=== PATIENT | male | born 1935 | race Caucasian/White ===

== ENCOUNTER 2016-12-08 14:29 | Inpatient (IN) ==
--- NOTE | 2016-12-07 22:19 | Discharge Summary ---
<Shanell Koch - Last Filed: 12/07/16 22:14> Date of Encounter: 12/07/16 - Discharge Diagnosis (1) Arthritis of right hip Priority: Primary Status: Acute (2) Status post total hip replacement, right Priority: Primary Status: Acute (3) Obesity Priority: Secondary Status: Chronic Qualifiers: Obesity type: due to excess calories Obesity classification: unspecified obesity classification Serious obesity comorbidity presence: without serious comorbidity Qualified Code(s): E66.09 - Other obesity due to excess calories (4) HTN (hypertension) Priority: Secondary Status: Chronic Qualifiers: Hypertension type: essential hypertension Qualified Code(s): I10 - Essential (primary) hypertension - Discharge Medications Home Medications: OxyCODONE Immed Rel [Roxicodone 5 MG] 5 - 10 mg PO Q6HR PRN #40 tablet 12/07/16 [Rx] Amlodipine/Atorvastatin [Caduet 5 mg-20 mg Tablet] 1 each PO DAILY 12/08/16 [ History] Cholecalciferol (Vitamin D3) [Vitamin D] 2,000 unit PO DAILY #0 12/08/16 [ History] hydroCHLOROthiazide [Hydrochlorothiazide] 25 mg PO DAILY #0 12/08/16 [History] Allergies/Adverse Reactions: 3 Allergy/AdvReac Type Severity Reaction Status Date / Time No Known Allergies Allergy Verified 11/27/16 08:07 Primary care physician: Talha Armijo Jr, MD - Patient Status Disposition: Home Health Service Condition: Good - Discharge Instructions Follow Up With: Talha Armijo Jr, MD [Primary Care Provider] - - Hospital Course Hospital course: Mr. Rey is a 81 year old male - Time Spent with Patient Total time spent providing and/or coordinating discharge services: <Ganesh Alexis - Last Filed: 12/09/16 06:48> Date of Encounter: 12/09/16 Time of Encounter: 06:47 Primary care physician: Talha Armijo Jr, MD - Patient Status Functional capacity at discharge: uses cane/walker Overall status at discharge: patient is progressing back to baseline - Hospital Course Hospital course: Mr. Rey is a 81 year old male Status post right total hip replacement The patient had an uneventful postoperative course. They received antibiotics and physical therapy and were discharged in stable condition. There will follow -up in the office in 2 weeks. - Time Spent with Patient Total time spent providing and/or coordinating discharge services:
--- NOTE | 2016-12-08 09:33 | Physician Discharge Referral ---
Home Health/Hosp Referral Info Transfer to: Home Health Attending Provider: Provider in Charge Post Discharge: PCP - Diagnosis (1) Arthritis of right hip Priority: Primary Status: Acute (2) Status post total hip replacement, right Priority: Primary Status: Acute (3) Obesity Priority: Secondary Status: Chronic (4) HTN (hypertension) Priority: Secondary Status: Chronic - Respiratory Orders None Smoking Cessation: Smoking cessation has been advised. For more information, call the [employer] Tobacco Quit Line at 8-962-EZFE-NOW. - Dressing/Wound Care Type of Dressing/Treatments w/Frequency: Right Hip: THR Opsite dressing, leave intact until first post-operative visit. If dressing becomes >50% saturated, contact office, remove dressing and place appropriate dressing in its place. Do not allow for dressing to get wet. [place] in place. To be removed at POW#2 once incision has healed. PT: HIP Precautions x 6 weeks Apply cold therapy wrap 3-6x/day for 20 minutes at a time. Encourage ambulation throughout the day and incentive spirometer 10x/hour. Elevate affected extremity above heart as tolerated. Brace: Hip Abduction pillow - keep in place at night until post-operative week # 6. - Diet/Nutrition Diet/Nutrition Orders: Regular - Activity Activity Orders: Up ad sahlyn, Ambulate - Services Needed Following services are medically necessary services: Nursing, Home Health Aide, Physical Therapy, Occupational Therapy - Transfer Medications Prescriptions: OxyCODONE Immed Rel [Roxicodone 5 MG] 5 - 10 mg PO Q6HR PRN #40 tablet PRN Reason: Pain Aspirin Enteric Coated [Aspirin EC] 325 mg PO DAILY #21 tablet. Home Medications: Aspirin Enteric Coated [Aspirin EC] 325 mg PO DAILY #21 tablet. 12/07/16 [Rx] OxyCODONE Immed Rel [Roxicodone 5 MG] 5 - 10 mg PO Q6HR PRN #40 tablet 12/07/16 [Rx] Allergies/Adverse Reactions: 3 Allergy/AdvReac Type Severity Reaction Status Date / Time No Known Allergies Allergy Verified 11/27/16 08:07 Certification: Further, I certify that my clinical findings support that this patient is homebound (i.e. absences from home require considerable and taxing effort and are for medical reasons or oriental orthodox services or infrequently or short duration when for other reasons) because: Homebound Reason: Post-surgery restriction and or conditions limit ability to leave home Attestation: My signature below is to certify that this patient is under my care and that I, or nurse practitioner, or a physician's assistant fitness manager working with me, has a face-to -face encounter with this patient.
[2016-12-08] MEDS ORDERED: Lidocaine -MPF 2% 2 ML VIAL ONE (14:30)
[2016-12-08] MEDS ORDERED: Lidocaine -MPF 4% 5 ML AMPUL ONE (14:30)
[2016-12-08] MEDS ORDERED: Dexamethasone 4 MG/ML VIAL ONE (14:30)
[2016-12-08] MEDS ORDERED: *HR* Succinylcholine 200 MG/10 ML VIAL IVP ONE (14:30)
[2016-12-08] MEDS ORDERED: Ondansetron 4 MG/2 ML VIAL ONE (14:30)
[2016-12-08] MEDS ORDERED: *HR* FentaNYL (PF) 100 MCG/2 ML VIAL ONE ×2 (14:31→16:20)
[2016-12-08] MEDS ORDERED: *HR* Propofol 200 MG/20 ML VIAL IVP ONE (14:31)
[2016-12-08] MEDS ORDERED: *HR* HYDROmorphone (PF) 1 MG/ML SYRINGE IVP PRN ×2 (14:37→18:14)
[2016-12-08] MEDS ORDERED: *HR* Promethazine 25 MG/ML VIAL IVP PRN (14:37)
[2016-12-08] MEDS ORDERED: Famotidine 20 MG/2 ML VIAL IVP ONE (14:39)
[2016-12-08] MEDS ORDERED: Acetaminophen IV 1,000 MG/100 ML INFUS..BTL IVPB ONE (14:40)
[2016-12-08] MEDS ORDERED: Gabapentin 300 MG CAPSULE PO ONE (14:40)
[2016-12-08] MEDS ORDERED: Plasma-Lyte A (PH 7.4) 1,000 ML IVC SCH (14:45)
--- NOTE | 2016-12-08 14:46 | History & Physical Report ---
Date of Encounter: 12/08/16 Time of Encounter: 14:46 24 Hour HP Update - Instructions Instructions: If the History and Physical is less than 30 days old and was completed prior to A.M. admission and or procedure and has NOT been updated on calendar day of procedure please complete this update prior to performing procedure. - Update Patient reports changes in Medical Condition: No Changes in examination, assessment, or condition: No Changes in Medication: No Preop tests/diagnostics Reviewed: Yes Surgery Remains Indicated: Yes Consent for Planned Operative Procedure(s) Verified: Yes - Pre-Operative Checklist Preoperative Checklist Indicated: No Prophylactic Antibiotic Ordered: Yes Is VTE Prophylaxis Indicated?: Yes
[2016-12-08] MEDS ORDERED: CeFAZolin Pre 2,000 MG/100 ML 2,000 MG/100 ML BAG IVPB ONE (14:53)
--- NOTE | 2016-12-08 14:59 | Anesthesia Evaluation PreOp ---
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 12/07/16 [Rx] OxyCODONE Immed Rel [Roxicodone 5 MG] 5 - 10 mg PO Q6HR PRN #40 tablet 12/07/16 [Rx] 3 Allergy/AdvReac Type Severity Reaction Status Date / Time No Known Allergies Allergy Verified 11/27/16 08:07 - Meds/Allergy Pre-op Review Medications Reviewed: Yes Allergies Reviewed: Yes Beta Blockers on Current Med List: No Anesthesia Results - Labs Laboratory Tests 11/27/16 11/27/16 11/27/16 08:20 08:20 08:20 Hgb 17.5 H Hct 49.5 Plt Count 170 PT 10.8 INR 1.0 APTT 28.4 Sodium 138 Potassium 3.6 BUN 13 Creatinine 0.85 - Imaging EKG: report reviewed (SR) Anesthesia Exam O2 Sat Height 1.78 m Weight 109.769 kg Height: 5'10 Weight: 242 lbs NPO (# of Hours): MN Pain Scale: 0 - HEENT Pupil (Motor): Pupils equal, EOMI Mallampati: II Teeth: Normal Denture Type: Upper: Complete Oral Opening: Greater than 3 - LOCKSTITCH ZIPPER SETTER LOC: Oriented LOCKSTITCH ZIPPER SETTER Motor: Normal RUE, Normal LUE, Normal RLE, Normal LLE, Normal Face LOCKSTITCH ZIPPER SETTER Sensory: Normal: RUE, LUE, RLE, LLE, Face - Cardiac Rhythm: Regular Murmur: None JVD: No Carotid Bruit: No - Pulmonary Breath Sounds: bilateral Clear Respiratory Effort: Symmetrical Anesthesia Assess/Plan ASA Score: 2 Modified [place] Scale for Level of Consciousness: Cooperative, oriented, and tranquil Anesthetic Plan: General, Regional Monitoring Plan: Standard Monitors Recovery Plan: PACU (Discussed GA and RA, agrees to proceed)
[2016-12-08] MEDS ORDERED: Ringers Solution, Lactated 1,000 ML IVC SCH ×2 (15:00→18:14)
[2016-12-08] MEDS ORDERED: *HR* Midazolam HCl 2 MG/2 ML VIAL ONE (15:09)
[2016-12-08] MEDS ORDERED: Bupivacaine/Clonidine Syringe 1 EACH SYRINGE ONE (15:10)
--- NOTE | 2016-12-08 15:57 | Anesthesia Procedures ---
Date of Encounter: 12/08/16 Time of Encounter: 14:55 Procedures: Anesthesia - Nerve Block Procedure Date: 12/08/16 Time: 15:40 Pre-op Diagnosis: Rt Hip Arthropathy Surgical Procedure: Rt THR Checklist: Correct Patient Identifier Correct side: Right Blood Thinner: No Monitor Applied: EKG, BP, Pulse Oximetry Supplemental Oxygen via Nasal Cannula (L/min): 2 Sedation: Versed (mg): 2 Sedation: Fentanyl (mcg): 100 Indication: Post Op Analgesia Pre-op Neuro Deficits: No Block Type: Other (Fascia Iliaca) Catheter placed: No Depth at skin (cm): 2 Sterile Technique: Yes Ultrasound used: Yes Anatomy identified: Yes Visual spread of Local: Yes Neuro Stimulation: No Blood on Needle Aspiration: No Smooth Injection of Local: Yes Pain with Injection of Local: No Prep: Chlorhexadine Needle: 22 x 50 mm Stimuplex Local: 0.25% Bupivicaine w/Clonidine 20 mcg/cc Volume (cc): 60 Number of Attempts: 1 Complications: None/effective block Vitals: Vital Signs/O2 Sat/Glucose, Most Current Temp Pulse Resp BP Pulse Ox 12/08/16 15:24 84 16 151/91 96 12/08/16 15:00 98.4 F 88 20 153/74 94
[2016-12-08] MEDS ORDERED: Ketorolac 30 MG/ML VIAL ONE (16:40)
--- NOTE | 2016-12-08 16:43 | Orthopedic Operative Note ---
Date of procedure: 12/08/16 Pre-op diagnosis: Right hip arthritis Post-op diagnosis: same Procedure: Procedure: Right Total Hip Replacment Estimated blood loss: 200 cc Hardware: Metal and polyethylene replacement. Biomet DM Cup: 60 G7 fin cup Femoral size 12 echo full profile lateralized stem Head: head with [place] +6 Procedural Notes: Grade 4 arthritic changes femoral head acetabular socket Operative procedure: The patient was brought to the operating room and placed on the operating room table. After general anesthesia was administered the patient was placed in the lateral decubitus position with the operative leg up. All pressure points were padded appropriately and the head was stabilized in the neutral position. The operative extremity was prepped and draped in the sterile surgical fashion patient received IV antibiotic prior to skin incision. A standard posterior approach is made to the operative hip, the incision was made through the skin and subcutaneous tissue hemostasis was obtained with Bovie cautery. Using careful sharp dissection the fascia was identified and incised exposing the external rotators. The external rotators were released off the greater trochanter and tagged with #2 FiberWire suture. The capsule was T'd open and the hip was brought into internal rotation. Patient noted to have grade 4 arthritic changes femoral head. The femoral neck cut was made at the appropriate level. An anterior capsulotomy was performed for the anterior retractor. Soft tissues removed from the acetabulum. Patient noted to have grade 4 arthritic changes acetabulum. Acetabulum was first reamed medially, and then reamed in 15 degrees of anteversion and 45 degrees off the horizontal. It was reamed up to the appropriate size 60 The appropriate-sized 60 acetabular cup was impacted in place in 15 degrees of anteversion and 45 degrees off the horizontal. This had good fit and fixation. The hip was brought back in to internal rotation and prepared with the box printing machine operator followed by the canal finder followed by broaching process in 20 degrees anteversion. It was broached up to the appropriate size 12 The femoral implant was impacted in place in 20 degrees of anteversion. Trial reduction found the hip to be stable with 6 head and Paris. The trials were removed and the real implants were impacted in place. The hip was reduced, patient had apparent equal leg lengths. The hip had excellent stability with forward flexion to 90 degrees adduction of 30 degrees and internal rotation of 60 degrees. The hip had no shuck. The hips after 2 minutes with a Betadine saline solution. It was irrigated out with 2 L of pulse irrigation. The hip was closed by the PA. Fascia was closed with a running #2 PDS suture. The deep tissue was irrigated and closed deep with #1 PDS suture superficially with 0 PDS suture and skin was closed with Dermabond and skin sylwia. The patient was placed in a sterile dressing and abduction pillow. The patient was extubated and transferred to the recovery room in stable condition. Anesthesia: GETA Surgeon: Ganesh Alexis Condition: stable Disposition: PACU
--- NOTE | 2016-12-08 17:29 | Anesthesia Evaluation Post Op ---
Date of Encounter: 12/08/16 Time of Encounter: 17:30 - Vital Signs Vital Signs: Vital Signs/O2 Sat/Glucose, Most Current Temp Pulse Resp BP Pulse Ox 12/08/16 15:24 84 16 151/91 96 12/08/16 15:00 98.4 F 88 20 153/74 94 - Lungs Lungs: Clear Ascult./Percussion - Airway Airway: Non-obstructed - Cardiovascular Regular Rate - Mental Status Mental Status: Alert & Oriented, Answers Appropriately - Pain Pain Scale: 1 - Nausea Vomiting Nausea Vomiting: Not Present - Hydration Hydration: Ice chips - Discharge PostOp Status: Transfer Patient to floor
[2016-12-08 17:49] LABS: Hematocrit 46.7 % (37.5-50.1); Hemoglobin 15.8 g/dL (12.9-16.9)
[2016-12-08] MEDS ORDERED: *HR* Enoxaparin 30 MG/0.3 ML SYRINGE SQ SCH (18:00)
[2016-12-08] MEDS ORDERED: Ondansetron 4 MG/2 ML VIAL IVP PRN (18:14)
[2016-12-08] MEDS ORDERED: ceFAZolin 2,000 MG in D5% in Water 100 ML IVPB SCH (18:14)
[2016-12-08] MEDS ORDERED: Naloxone 0.4 MG/ML INJ IVP PRN (18:14)
[2016-12-08] MEDS ORDERED: MOM Conc 10 ML UD.LIQ PO PRN (18:14)
[2016-12-08] MEDS ORDERED: Sennosides 8.6 MG TABLET PO PRN (18:14)
[2016-12-08] MEDS ORDERED: *HR* OxyCODONE Immed Rel 5 MG TABLET PO PRN (18:14)
[2016-12-08] MEDS ORDERED: Temazepam 15 MG CAPSULE PO PRN (18:14)
[2016-12-08] MEDS: Ascorbic Acid 500 MG TABLET PO SCH (18:27)
[2016-12-08] MEDS: *HR* OxyCODONE Immed Rel 5 MG TABLET PO PRN (18:32)
[2016-12-08] MEDS: ceFAZolin 2,000 MG in D5% in Water 100 ML IVPB SCH (23:40)
[2016-12-09 05:28] LABS: Hematocrit 42.4 % (37.5-50.1); Hemoglobin 14.7 g/dL (12.9-16.9)
[2016-12-09 05:42] LABS: BUN/Creatinine Ratio 19 (6-26); Blood Urea Nitrogen 18 mg/dL (8-26); Calcium 8.7 mg/dL (8.6-10.8); Carbon Dioxide 24 mEq/L (19-29); Chloride 104 mEq/L (98-109); Glucose 130 mg/dL (70-99); Osmolality,Calculated 284 (280-300); Potassium 4.7 mEq/L (3.5-4.5); Sodium 135 mEq/L (136-145); eGFR For African Americans > 60 (> 60); eGFR For Non-African Americans > 60 (> 60)
[2016-12-09] MEDS ORDERED: *HR* Enoxaparin 30 MG/0.3 ML SYRINGE SQ SCH (06:00)
[2016-12-09] MEDS: *HR* OxyCODONE Immed Rel 5 MG TABLET PO PRN ×2 (06:47→11:24)
--- NOTE | 2016-12-09 06:49 | Orthopedics Progress Note ---
Date of Encounter: 12/09/16 Time of Encounter: 06:48 Subjective Interval history: Patient was seen this morning doing well without complaints. Afebrile vital signs stable. Operative extremity: Neurovascularly intact Dressing clean dry and intact Calves nontender Assessment and plan: Continue with postoperative care Hematocrit 42 discharged today Objective Vital signs: Vital Signs Temp Pulse Resp BP Pulse Ox 12/09/16 06:33 97.8 F 79 18 157/79 95 12/09/16 04:53 97.6 F 80 18 146/79 99 12/08/16 23:48 98.1 F 79 18 135/68 96 12/08/16 18:50 98.4 F 84 16 148/91 96 12/08/16 18:20 97.7 F 85 17 137/89 98 12/08/16 18:00 97.9 F 79 16 155/97 97 12/08/16 17:50 97.9 F 77 16 148/96 97 12/08/16 17:40 97.9 F 80 15 145/87 97 12/08/16 17:30 69 12 131/86 97 12/08/16 17:20 74 14 128/76 98 12/08/16 17:10 97.3 F L 76 16 132/85 95 12/08/16 15:24 84 16 151/91 96 12/08/16 15:00 98.4 F 88 20 153/74 94 Intake and Output 12/08/16 12/08/16 12/09/16 15:59 23:59 07:59 Intake Total 0 / 0 500 / 500 Output Total 200 / 200 650 / 650 Balance -200 / -200 -150 / -150 Intake: Oral 0 / 0 500 / 500 Output: Urine 650 / 650 Estimated Blood Loss 200 / 200 Other: Weight 109.769 kg - Labs CBC & BMP: 12/09/16 05:08 12/09/16 05:08 Labs: Abnormal lab results Sodium 135 mEq/L (136-145) L 12/09/16 05:08 Potassium 4.7 mEq/L (3.5-4.5) H 12/09/16 05:08 Glucose 130 mg/dL (70-99) H 12/09/16 05:08 - VTE Documentation of Mechanical Device: Venous foot pump, device Consult Discharge Plan - Plan Referrals: Talha Armijo Jr, MD [Primary Care Provider] -
[2016-12-09] MEDS: ceFAZolin 2,000 MG in D5% in Water 100 ML IVPB SCH (08:28)
[2016-12-09] MEDS: Ascorbic Acid 500 MG TABLET PO SCH (08:30)
[2016-12-09] MEDS ORDERED: amLODIPine 5 MG TABLET PO SCH (09:00)
[2016-12-09] MEDS ORDERED: Cholecalciferol (D-3) 1,000 UNIT TABLET PO SCH (09:00)
[2016-12-09] MEDS ORDERED: hydroCHLOROthiazide 25 MG TABLET PO SCH (09:00)
[2016-12-09] MEDS ORDERED: Multivit/Ca/Min/Fe/FA 1 TAB TABLET PO SCH (09:00)
--- NOTE | 2016-12-09 12:21 | Event Note ---
Date of Encounter: 12/09/16 Time of Encounter: 12:21 PCR - Right THR POD#1 Patient seen at bedside. Labs stable Pain control: Adequate Participating in PT. All questions and concerns addressed. Educated on use of incentive spirometer, ambulation, and hydration. Patient educated on post-operative restrictions and care. Addressed: See above D/C plan:. today
[2016-12-16] VITALS: BP 118/62
== END 2016-12-09 14:41 | disposition home health service (06) | DRG 470 ==
LOC: SAMDAY 14:29 → 3NENU 18:11
PROVIDERS: ADMIT Orthopaedic Surgery; ATTEND Orthopaedic Surgery

== ENCOUNTER 2020-12-02 08:53 | Observation (INO) ==
[2020-12-02] MEDS ORDERED: Ondansetron 4 MG/2 ML VIAL IVP ONE (09:29)
[2020-12-02] MEDS ORDERED: 0.9 % Sodium Chloride 1,000 ML IVC ONE (09:29)
[2020-12-02] MEDS ORDERED: Isovue-370 500 ML BOTTLE IVP ONE (09:36)
[2020-12-02 09:58] LABS: Bacteria,Urine Moderate per hpf (None-Few); Bilirubin,Urine Negative (Negative); Blood,Urine Negative (Negative); Clarity,Urine Turbid (Clear); Color,Urine Yellow (Yellow); Glucose,Urine (UA) Normal (Normal); Hyaline Casts,Urine Moderate per lpf (None Seen); Ketones,Urine Negative (Negative); Leukocyte Esterase,Urine Moderate (Negative); Mucus,Urine Many per lpf (None-Few); Nitrite,Urine Negative (Negative); Protein,Urine Trace mg/dL (Neg-Trace); RBC,Urine 0-3 per hpf (0-3); Specific Gravity,Urine 1.019 (1.010-1.025); Squamous Epithelial Cell,Urine Few per hpf (None-Few); WBC,Urine 50-100 per hpf (0-3)
[2020-12-02 10:02] LABS: Basophils % 0.1 %; Hematocrit 24.5 % (37.5-50.1); Hemoglobin 8.4 g/dL (12.9-16.9); Immature Granulocytes % 0.5 % (0-4); Lymphocytes # 0.6 K/mcL (0.6-4.6); Lymphocytes % 3.8 %; Mean Corpuscular HGB Conc 34.3 g/dL (31.6-35.5); Mean Corpuscular Hemoglobin 31.3 pg (28.0-33.3); Mean Corpuscular Volume 91.4 fL (83.0-100.0); Mean Platelet Volume 9.3 fL (9.4-12.4); Monocytes # 0.8 K/mcL (0.0-1.3); Monocytes % 5.1 %; Neutrophils # 13.3 K/mcL (1.6-8.9); Platelet Count 266 K/mcL (140-400); Red Blood Count 2.68 M/mcL (4.19-5.50); Red Cell Distribution Width 13.4 % (11.5-14.5); Segmented Neutrophils % 90.5 %; White Blood Count 14.7 K/mcL (4.3-11.1)
[2020-12-02 10:14] LABS: INR 1.3; Prothrombin Time 14.9 Seconds (9.4-12.1)
[2020-12-02 10:22] LABS: Alanine Aminotransferase 8 Units/L (7-52); Albumin 3.1 g/dL (3.5-5.7); Albumin/Globulin Ratio 1.3 (1.1-2.2); Alkaline Phosphatase 55 Units/L (34-104); Aspartate Amino Transferase 11 Units/L (13-39); BUN/Creatinine Ratio 22 (6-26); Bilirubin,Total 1.5 mg/dL (0.3-1.0); Blood Urea Nitrogen 19 mg/dL (8-23); Calcium 8.2 mg/dL (8.6-10.3); Carbon Dioxide 28 mEq/L (23-29); Chloride 95 mEq/L (98-107); Globulin 2.4 g/dL (2.4-3.5); Glucose 144 mg/dL (70-105); Osmolality,Calculated 279 (280-300); Potassium 3.1 mEq/L (3.5-5.1); Sodium 132 mEq/L (136-145); Total Protein 5.5 g/dL (6.4-8.9); eGFR For African Americans > 60 (> 60); eGFR For Non-African Americans > 60 (> 60)
[2020-12-02 10:31] LABS: Troponin I < 0.03 ng/mL (< 0.04)
[2020-12-02] MEDS ORDERED: Pantoprazole 40 MG VIAL IVP ONE (10:34)
[2020-12-02] MEDS: Pantoprazole 40 MG in 0.9 % Sodium Chloride Mini Bag 100 ML IVC SCH ×3 (11:31→22:40)
[2020-12-02 12:29] LABS: INR 1.3
[2020-12-02 12:32] LABS: Activated Partial Thrombo Time 26.1 Seconds (26.0-36.0)
[2020-12-02] MEDS ORDERED: Naloxone 0.4 MG/ML INJ IVP PRN (13:42)
[2020-12-02] MEDS ORDERED: Ondansetron 4 MG/2 ML VIAL IVP PRN (13:42)
[2020-12-02] MEDS ORDERED: Potassium Chloride 40 MEQ, Lidocaine 1% 2 ML in 0.9 % Sodium Chloride 250 ML IVPB ONE (14:01)
[2020-12-02] MEDS ORDERED: D5% in Water 1,000 ML IVC PRN (14:02)
[2020-12-02] MEDS ORDERED: *HR* Dextrose 50 % in Water (Vial) 50 ML VIAL IVP PRN (14:02)
[2020-12-02] MEDS ORDERED: Dextrose Gel 15 GM/37.5 ML TUBE PO PRN ×2 (14:02)
[2020-12-02] MEDS: cefTRIAXone 1,000 MG in Water for inj. (sterile) 10 ML IVP SCH (14:47)
[2020-12-02 15:26] LABS: Estimated Average Glucose 97 mg/dl
[2020-12-02 15:51] LABS: % Iron Saturation 5 % (20-55); Iron 13 mcg/dL (65-175); Magnesium 1.7 mg/dL (1.6-2.6); Transferrin 176 mg/dL (203-362)
[2020-12-02 15:55] LABS: Folate 6.7 ng/mL (3.0-16.0)
[2020-12-02] MEDS ORDERED: Pantoprazole 40 MG VIAL IVP SCH (18:00)
[2020-12-02] MEDS: Insulin LISPRO 300 UNITS/3 ML VIAL SUBQ SCH (18:00)
[2020-12-03] MEDS: Insulin LISPRO 300 UNITS/3 ML VIAL SUBQ SCH ×5 (00:06→23:27)
[2020-12-03] MEDS: Pantoprazole 40 MG in 0.9 % Sodium Chloride Mini Bag 100 ML IVC SCH ×3 (03:31→12:52)
[2020-12-03 06:28] LABS: Basophils % 0.1 %; Eosinophils # 0.1 K/mcL (0.0-0.6); Eosinophils % 0.9 %; Hematocrit 21.9 % (37.5-50.1); Hemoglobin 7.5 g/dL (12.9-16.9); Immature Granulocytes % 0.5 % (0-4); Lymphocytes # 0.8 K/mcL (0.6-4.6); Lymphocytes % 8.8 %; Mean Corpuscular HGB Conc 34.2 g/dL (31.6-35.5); Mean Corpuscular Hemoglobin 31.3 pg (28.0-33.3); Mean Corpuscular Volume 91.3 fL (83.0-100.0); Mean Platelet Volume 9.5 fL (9.4-12.4); Monocytes # 0.7 K/mcL (0.0-1.3); Monocytes % 8.4 %; Neutrophils # 7.2 K/mcL (1.6-8.9); Platelet Count 239 K/mcL (140-400); Red Cell Distribution Width 13.5 % (11.5-14.5); Segmented Neutrophils % 81.3 %; White Blood Count 8.9 K/mcL (4.3-11.1)
[2020-12-03 07:09] LABS: Alanine Aminotransferase 7 Units/L (7-52); Albumin 2.9 g/dL (3.5-5.7); Albumin/Globulin Ratio 1.5 (1.1-2.2); Alkaline Phosphatase 49 Units/L (34-104); Aspartate Amino Transferase 12 Units/L (13-39); BUN/Creatinine Ratio 19 (6-26); Blood Urea Nitrogen 15 mg/dL (8-23); Carbon Dioxide 26 mEq/L (23-29); Chloride 99 mEq/L (98-107); Globulin 1.9 g/dL (2.4-3.5); Glucose 109 mg/dL (70-105); Osmolality,Calculated 275 (280-300); Potassium 3.3 mEq/L (3.5-5.1); Sodium 132 mEq/L (136-145); Total Protein 4.8 g/dL (6.4-8.9); eGFR For African Americans > 60 (> 60); eGFR For Non-African Americans > 60 (> 60)
[2020-12-03] MEDS ORDERED: Iron Sucrose Complex 400 MG in 0.9 % Sodium Chloride 250 ML IVPB ONE (07:34)
[2020-12-03] MEDS: Cyanocobalamin (B-12) 1,000 MCG/ML VIAL SQ SCH (08:22)
[2020-12-03 10:49] LABS: Calcium 7.7 mg/dL (8.6-10.3)
[2020-12-03] MEDS ORDERED: Lidocaine -MPF 2% 5 ML VIAL ONE (14:19)
[2020-12-03] MEDS: cefTRIAXone 1,000 MG in Water for inj. (sterile) 10 ML IVP SCH (15:07)
[2020-12-03 15:24] LABS: Hematocrit 24.1 % (37.5-50.1); Hemoglobin 8.2 g/dL (12.9-16.9)
[2020-12-03 22:50] LABS: Hematocrit 22.5 % (37.5-50.1); Hemoglobin 7.7 g/dL (12.9-16.9)
[2020-12-03] MEDS: Pantoprazole 40 MG VIAL IVP SCH (22:57)
[2020-12-04 03:08] VITALS: O2SAT 95
[2020-12-04] MEDS: Pantoprazole 40 MG VIAL IVP SCH (05:42)
[2020-12-04] MEDS: Insulin LISPRO 300 UNITS/3 ML VIAL SUBQ SCH (05:48)
[2020-12-04 05:52] LABS: Basophils % 0.3 %; Eosinophils # 0.1 K/mcL (0.0-0.6); Eosinophils % 2.3 %; Hematocrit 21.8 % (37.5-50.1); Hemoglobin 7.5 g/dL (12.9-16.9); Immature Granulocytes % 0.5 % (0-4); Lymphocytes # 0.7 K/mcL (0.6-4.6); Lymphocytes % 10.8 %; Mean Corpuscular HGB Conc 34.4 g/dL (31.6-35.5); Mean Corpuscular Hemoglobin 31.6 pg (28.0-33.3); Mean Platelet Volume 9.7 fL (9.4-12.4); Monocytes # 0.7 K/mcL (0.0-1.3); Monocytes % 11.8 %; Neutrophils # 4.5 K/mcL (1.6-8.9); Platelet Count 269 K/mcL (140-400); Red Blood Count 2.37 M/mcL (4.19-5.50); Red Cell Distribution Width 13.7 % (11.5-14.5); Segmented Neutrophils % 74.3 %; White Blood Count 6.1 K/mcL (4.3-11.1)
[2020-12-04 06:12] LABS: BUN/Creatinine Ratio 16 (6-26); Blood Urea Nitrogen 12 mg/dL (8-23); Calcium 7.9 mg/dL (8.6-10.3); Carbon Dioxide 25 mEq/L (23-29); Chloride 101 mEq/L (98-107); Glucose 98 mg/dL (70-105); Osmolality,Calculated 274 (280-300); Potassium 3.7 mEq/L (3.5-5.1); Sodium 132 mEq/L (136-145); eGFR For African Americans > 60 (> 60); eGFR For Non-African Americans > 60 (> 60)
[2020-12-04] MEDS: Cyanocobalamin (B-12) 1,000 MCG/ML VIAL SQ SCH (07:50)
[2020-12-04 08:49] VITALS: BP 132/69; PULSE 88; TEMP 98.3
== END 2020-12-04 12:40 | disposition home or self-care (01) ==
LOC: 3ANU 08:53 → EMEROOARM 08:53 → SUATTDRO 12:36 → 3ANU 13:40
PROVIDERS: ADMIT General Practice; ATTEND Internal Medicine
PROC: ENDOEBX (2020-12-03 15:30)